=== PATIENT | female | born 1945 | race African-American/Black ===

== ENCOUNTER 2020-10-18 06:11 | Inpatient (IN) | payer OTHER ==
[2020-10-18] MEDS ORDERED: Albuterol/Ipratropium 3.0-0.5 MG/3 ML Neb Soln NEB STA (06:22)
[2020-10-18] MEDS ORDERED: Albuterol/Ipratropium 3.0-0.5 MG/3 ML Neb Soln NEB ONE ×2 (06:23→06:24)
[2020-10-18] MEDS ORDERED: methylPREDNISolone Sodium Succinate 40 MG/1 ML SDV IVPUSH ONE (06:24)
[2020-10-18] MEDS ORDERED: Magnesium Sulfate/Water 2 GM in Premix Bag 1 BAG IV ONE (06:24)
--- NOTE | 2020-10-18 06:35 | EDM.PDOC ---
<Arnav Wolff - Last Filed: 10/18/20 07:16> ED HPI GENERAL MEDICAL PROBLEM - General Chief Complaint: Respiratory Problem Stated Complaint: ASTHMA Time Seen by Provider: 10/18/20 06:20 - History of Present Illness INITIAL COMMENTS - FREE TEXT/NARRATIVE: CHIEF COMPLAINT(S): Shortness of breath HISTORY OF PRESENT ILLNESS: This is a 75-year-old woman with a past medical history of COPD not on home oxygen who comes to the emergency department with a chief complaint of shortness of breath. The patient has been experiencing shortness of breath since yesterday. She had 1 refill of albuterol at the pharmacy however she did not want to use it per the granddaughter at bedside. The patient states that she is having pain when she takes a deep breath and some lower back pain. She cannot describe the pain. She denies any diaphoresis, nausea or vomiting. She denies any cough, runny nose or congestion. She denies any fevers or chills. She denies any lower extremity edema. She denies any rec ent travel, recent surgery or prior history of DVT or PE. She has no history of hypertension. She denies any history of CAD or CHF. REVIEW OF SYSTEMS: Constitutional: Denies fever, chills. Eyes: Denies eye pain Ears, Nose, Mouth, & Throat: Denies earache Cardiovascular: Positive for pleuritic chest pain respiratory: Positive for shortness of breath. Denies cough Gastrointestinal: Denies Nausea, vomiting, diarrhea, hematochezia. Genitourinary: Denies hematuria, dysuria Skin:Denies a rash MSK: Positive for lower back pain Neurological: Denies blurred vision, numbness, tingling, weakness Psychiatric: Denies depression PAST MEDICAL HISTORY: As per history of present illness and as reviewed below otherwise noncontributory. SURGICAL HISTORY: As per history of present illness and as reviewed below otherwise noncontributory. SOCIAL HISTORY: As per history of present illness and as reviewed below otherwise noncontributory. FAMILY HISTORY: As per history of present illness and as reviewed below otherwise noncontributory. EXAMINATION OF ORGAN SYSTEMS/BODY AREAS: Constitutional: Blood pressure was 213/132, heart rate 98, respiratory rate 26 with an oxygen saturation of 87% on room air. Temperature 36.2. The patient was 98% on 2 L nasal cannula General: Elderly woman who appears to be in moderate respiratory distress Psychiatric: Appropriate mood and affect. Eyes: No scleral icterus or conjunctival erythema ENMT: Moist mucous membranes. No pharyngeal erythema Cardiovascular: Regular, rate, and rhythm. No gallops, murmurs, or rubs. Bilateral upper extremity pulses symmetric and intact. No peripheral edema. JVD is present respiratory: The patient is tachypneic with bilateral inspiratory and expiratory wheezing with prolonged expiratory phase. Patient is able to sit comfortable setting back. The wheezing is asymmetrical with more wheezing on the left than the right. Gastrointestinal: Soft, non-tender, non-distended. Normoactive bowel sounds Genitourinary: No suprapubic tenderness Musculoskeletal: Normal range of motion. No midline thoracic, lumbar tenderness. No paralumbar spinal tenderness. No abnormality of the skin. Skin: No lesions or abrasions. Neurological: Alert, GCS 15 MEDICAL DECISION MAKING AND COURSE IN THE ED WITH INTERPRETATION/REVIEW OF DIAGNOSTIC STUDIES: This is a 75-year-old woman with a past medical history of COPD not on home oxygen without any reported other history who comes to the emergency department with acute dyspnea who has bilateral inspiratory and expiratory wheezing who is hypoxic on room air. Given her history of COPD we will provide the patient with 3 DuoNeb treatments q. 20 minutes, 40 mg of IV Solu-Medrol, and 2 g of magnesium. Given the hypoxia and hypertension will obtain an EKG and a cardiac work-up. I will obtain CBC, CMP, lipase, troponin, BNP, magnesium. Will place patient on charge entry specialist and pulse oximetry. digital recruiter did reveal sinus rhythm and pulse oximetry with good waveform was 98% on 2 L nasal cannula. DISPOSITION: Patient was signed out to oncoming day team physician pending reevaluation and work-up. CONDITION: Fair PROCEDURES: Cardiac monitoring interpretation, pulse oximetry interpretation FINAL IMPRESSION(S)/DIAGNOSES: 1. Acute hypoxic respiratory failure requiring oxygen supplementation likely secondary to COPD exacerbation Arnav Wolff M.D. Middle Chest Pain Score (Numeric/FACES): 7 - Related Data Allergies Allergy/AdvReac Type Severity Reaction Status Date / Time No Known Allergies Allergy Verified 10/18/20 06:18 ED ROS GENERAL - Review of Systems Review Of Systems: See Below ED EXAM, GENERAL - Physical Exam Exam: See Below Departure - Departure Disposition: Admitted As Inpatient 67 Clinical Impression: COPD exacerbation - Discharge Information Referrals: PCP,None [Primary Care Provider] - Forms: ED Department Discharge Sepsis Event Note (ED) - Evaluation Sepsis Screening Result: No Definite Risk <Olaf James - Last Filed: 10/18/20 07:36> Course - Vital Signs Last Recorded V/S: Last Vital Signs Temp 97.2 F 10/18/20 06:19 Pulse 82 10/18/20 07:18 Resp 18 10/18/20 07:18 BP 146/93 H 10/18/20 07:18 Pulse Ox 95 10/18/20 07:18 - Orders/Labs/Meds Orders: Active Orders 24 hr Category Date Time Status EKG Documentation Completion [RC] STAT Care 10/18/20 06:21 Active RT Aerosol Therapy [RC] ASDIRECTED Care 10/18/20 06:23 Active RT Aerosol Therapy [RC] ASDIRECTED Care 10/18/20 06:24 Active RT Aerosol Therapy [RC] ASDIRECTED Care 10/18/20 06:24 Active Magnesium Sulfate/Water [Magnesium Sulfate in Water 2 Med 10/18/20 06:24 Active GM/50 ML] 2 gm Premix Bag 1 bag IV ONETIME Medication Orders Magnesium Sulfate 2 gm/ Premix 50 mls @ 12.5 mls/hr IV ONETIME ONE Stop: 10/18/20 10:23 Last Admin: 10/18/20 06:32 Dose: 12.5 mls/hr Documented by: CHANTELL Labs: Laboratory Tests 10/18/20 10/18/20 10/18/20 Range/Units 06:25 06:25 06:25 WBC 9.91 (4.0-11.0) K/uL RBC 5.68 (4.30-5.90) M/uL Hgb 16.3 H (12.0-16.0) g/dL Hct 49.3 H (36.0-46.0) % MCV 86.8 (80.0-98.0) fL MCH 28.7 (27.0-32.0) pg MCHC 33.1 (31.0-37.0) g/dL RDW Std Deviation 44.3 (28.0-62.0) fl RDW Coeff of Anibal 14 (11.0-15.0) % Plt Count 160 (150-400) K/uL MPV 11.50 (7.40-12.00) fL Neut % (Auto) 39.2 L (48.0-80.0) % Lymph % (Auto) 50.3 H (16.0-40.0) % [place] % (Auto) 5.3 (0.0-15.0) % Eos % (Auto) 4.9 (0.0-7.0) % Baso % (Auto) 0.3 (0.0-1.5) % Neut # (Auto) 3.9 (1.4-5.7) K/uL Lymph # (Auto) 5.0 H (0.6-2.4) K/uL [place] # (Auto) 0.5 (0.0-0.8) K/uL Eos # (Auto) 0.5 (0.0-0.7) K/uL Baso # (Auto) 0.0 (0.0-0.1) K/uL Nucleated RBC % 0.0 /100WBC Nucleated RBCs # 0 K/uL Sodium 141 (136-145) mmol/L Potassium 5.1 (3.5-5.1) mmol/L Chloride 102 (98-107) mmol/L Carbon Dioxide 28.8 (21.0-32.0) mmol/L BUN 18 (7.0-18.0) mg/dL Creatinine 0.7 (0.6-1.0) mg/dL Est Cr Clr Drug Dosing 52.51 mL/min Estimated GFR (MDRD) > 60.0 ml/min Glucose 155 H (74-106) mg/dL Calcium 9.2 (8.5-10.1) mg/dL Magnesium 2.0 (1.8-2.4) mg/dL Total Bilirubin 0.4 (0.2-1.0) mg/dL AST 41 H (15-37) IU/L ALT 23 (14-63) IU/L Alkaline Phosphatase 84 (46-116) U/L Troponin I < 0.050 (0.000-0.056) ng/mL B-Natriuretic Peptide 7 (<100) PG/ML Total Protein 8.9 H (6.4-8.2) g/dL Albumin 4.0 (3.4-5.0) g/dL Globulin 4.9 H (2.6-4.0) g/dL Albumin/Globulin Ratio 0.8 L (0.9-1.6) Meds: Medications Generic Name Dose Route Start Last Admin Trade Name Freq PRN Reason Stop Dose Admin Magnesium Sulfate 2 gm/ Premix 50 mls @ 12.5 mls/hr 10/18/20 06:24 10/18/20 06:32 IV 10/18/20 10:23 12.5 mls/hr ONETIME ONE Administration Discontinued Medications Generic Name Dose Route Start Last Admin Trade Name Freq PRN Reason Stop Dose Admin Albuterol/Ipratropium 3 ml 10/18/20 06:22 10/18/20 06:38 Albuterol/Ipratropium 3.0-0.5 Mg/3 Ml Neb Inge NEB 10/18/20 06:23 3 ml ONETIME STA Administration Albuterol/Ipratropium 3 ml 10/18/20 06:23 10/18/20 06:57 Albuterol/Ipratropium 3.0-0.5 Mg/3 Ml Scott Alcazar NEB 10/18/20 06:24 3 ml ONETIME ONE Administration Albuterol/Ipratropium 3 ml 10/18/20 06:24 10/18/20 07:14 Albuterol/Ipratropium 3.0-0.5 Mg/3 Ml Neb Inge NEB 10/18/20 06:25 3 ml ONETIME ONE Administration Methylprednisolone Sodium Succinate 40 mg 10/18/20 06:24 10/18/20 06:31 Methylprednisolone Sodium Succinate 40 Mg/1 Ml Sdv IVPUSH 10/18/20 06:25 40 mg ONETIME ONE Administration Departure - Departure Time of Disposition: 07:36 Condition: Good - Discharge Information *PRESCRIPTION DRUG MONITORING PROGRAM REVIEWED*: Not Applicable *COPY OF PRESCRIPTION DRUG MONITORING REPORT IN PATIENT IZABELLA: Not Applicable Sepsis Event Note (ED) - Focused Exam Vital Signs: Vital Signs Temp Pulse Resp BP Pulse Ox 10/18/20 07:18 82 18 146/93 H 95 10/18/20 06:25 104 H 24 H 95 10/18/20 06:19 97.2 F 98 26 H 213/132 H 87 L - Assessment/Plan Assessment:: Pt received in sign out from Dr. Wolff at 0700. Pt is a 75yoF with a h/o COPD who presented with hypoxia and respiratory distress. Pt also notably hypertensive on arrival. However, this improved with nebs which is typical for her. Pt now breathing more comfortably on 2 L NC. CXR without PNA. Awaiting rest of labs. Pt will likely need admission for acute hypoxic respiratory failure 2/2 COPD exacerbation. 0735: On reassessment pt is laying back in bed but con't to require O2 support at 2L. She con't to have diffuse expiratory wheezing with moderate air movement and prolonged expiratory phase. Labs w/out signs of cardiac process and given exam, significant improvment with neb and lack of any significant tachycardia PE is felt unlikely. Will discuss with the hospitalist regarding admission for further care. Pt discussed with Dr. Modi. COVID pending, will admit for further treatment.
--- NOTE | 2020-10-18 06:59 | PCM.EKG ---
#1 Interpretation EKG Date: 10/18/20 Time: 06:54 Rhythm: NSR Rate (Beats/Min): 96 [place]: Normal P-Wave: Present QRS: Normal ST-T: Normal QT: Normal Comparison: No Change (08/29/20) EKG Interpretation Comments: Sinus Rhythm
[2020-10-18 07:01] LABS: BLOOD UREA NITROGEN,BUN 18 mg/dL (7.0-18.0); CARBON DIOXIDE,CO2 28.8 mmol/L (21.0-32.0); CHLORIDE,CL 102 mmol/L (98-107); GLUCOSE RANDOM 155 mg/dL (74-106); POTASSIUM,K 5.1 mmol/L (3.5-5.1); SODIUM,NA 141 mmol/L (136-145)
--- NOTE | 2020-10-18 07:02 | CR ---
INDICATION: Shortness of breath, asymmetric wheezing TECHNIQUE: Portable AP view of the chest COMPARISON: None FINDINGS: The lungs are clear. There is no sizable pleural effusion or pneumothorax. The cardiomediastinal silhouette is mildly enlarged. The visualized osseous structures are unremarkable. IMPRESSION: Mildly enlarged cardiac silhouette. No acute pulmonary abnormality. Dictated by Crys Paul MD @ 10/18/2020 7:00:[address] Crys Paul @ Oct 18 2020 7:00AM
--- NOTE | 2020-10-18 13:28 | PCM.HP.2 ---
H&P History of Present Illness - General Date of Service: 10/18/20 Admit Problem/Dx: Admission Diagnosis/Problem Admission Diagnosis/Problem Acute bronchitis with chronic obstructive pulmonary disease (COPD) - History of Present Illness Initial Comments - Free Text/Narative: 75 yo female with pmh of HTN and COPD who presents with two day history of shortness of breath, wheezing and cough. She was seen in the ED in some respiratory distress. She was given solumdrol, duonebs with improvement in her breathing but still was requring simple NC to maintain sats. Middle Chest Pain Score (Numeric/FACES): 7 - Related Data Allergies/Adverse Reactions: Allergies Allergy/AdvReac Type Severity Reaction Status Date / Time No Known Allergies Allergy Verified 10/18/20 13:19 Past Medical History HEENT History: Reports: None Cardiovascular History: Reports: None Respiratory History: Reports: Asthma Gastrointestinal History: Reports: None Genitourinary History: Reports: None FUSE MAKER History: Reports: None Musculoskeletal History: Reports: None Neurological History: Reports: None Psychiatric History: Reports: None Endocrine/Metabolic History: Reports: None Hematologic History: Reports: None Immunologic History: Reports: None Oncologic (Cancer) History: Reports: None Dermatologic History: Reports: None - Infectious Disease History Infectious Disease History: Reports: None - Past Surgical History Head Surgeries/Procedures: Reports: None Social & Family History - Family History Family Medical History: No Pertinent Family History - Tobacco Use Tobacco Use Status *Q: Former Tobacco User Used Tobacco, but Quit: Yes Month/Year Tobacco Last Used: unkown - Caffeine Use Caffeine Use: Reports: None - Recreational Drug Use Recreational Drug Use: No H&P Review of Systems - Review of Systems: Review Of Systems: Comprehensive ROS is negative, except as noted in HPI. Exam - Exam Exam: See Below - Vital Signs Vital Signs: Last Vital Signs Temp 36.9 C 10/18/20 12:24 Pulse 80 10/18/20 12:24 Resp 18 10/18/20 12:24 BP 164/87 H 10/18/20 12:24 Pulse Ox 95 10/18/20 12:24 Weight: 45.5 kg - Exam General: Alert, Oriented HEENT: Mucosa Moist & [place] Neck: Supple Lungs: Clear to Auscultation, Normal Respiratory Effort Cardiovascular: Regular Rate, Regular Rhythm GI/Abdominal Exam: Normal Bowel Sounds, Soft, Non-Tender Extremities: Non-Tender, No Pedal Edema Skin: Warm, Dry, Intact - Patient Data Lab Results Last 24 hrs: Laboratory Results - last 24 hr 10/18/20 10/18/20 10/18/20 Range/Units 06:25 06:25 06:25 WBC 9.91 (4.0-11.0) K/uL RBC 5.68 (4.30-5.90) M/uL Hgb 16.3 H (12.0-16.0) g/dL Hct 49.3 H (36.0-46.0) % MCV 86.8 (80.0-98.0) fL MCH 28.7 (27.0-32.0) pg MCHC 33.1 (31.0-37.0) g/dL RDW Std Deviation 44.3 (28.0-62.0) fl RDW Coeff of Anibal 14 (11.0-15.0) % Plt Count 160 (150-400) K/uL MPV 11.50 (7.40-12.00) fL Neut % (Auto) 39.2 L (48.0-80.0) % Lymph % (Auto) 50.3 H (16.0-40.0) % [place] % (Auto) 5.3 (0.0-15.0) % Eos % (Auto) 4.9 (0.0-7.0) % Baso % (Auto) 0.3 (0.0-1.5) % Neut # (Auto) 3.9 (1.4-5.7) K/uL Lymph # (Auto) 5.0 H (0.6-2.4) K/uL [place] # (Auto) 0.5 (0.0-0.8) K/uL Eos # (Auto) 0.5 (0.0-0.7) K/uL Baso # (Auto) 0.0 (0.0-0.1) K/uL Nucleated RBC % 0.0 /100WBC Nucleated RBCs # 0 K/uL Sodium 141 (136-145) mmol/L Potassium 5.1 (3.5-5.1) mmol/L Chloride 102 (98-107) mmol/L Carbon Dioxide 28.8 (21.0-32.0) mmol/L BUN 18 (7.0-18.0) mg/dL Creatinine 0.7 (0.6-1.0) mg/dL Est Cr Clr Drug Dosing 52.51 mL/min Estimated GFR (MDRD) > 60.0 ml/min Glucose 155 H (74-106) mg/dL Calcium 9.2 (8.5-10.1) mg/dL Magnesium 2.0 (1.8-2.4) mg/dL Total Bilirubin 0.4 (0.2-1.0) mg/dL AST 41 H (15-37) IU/L ALT 23 (14-63) IU/L Alkaline Phosphatase 84 (46-116) U/L Troponin I < 0.050 (0.000-0.056) ng/mL B-Natriuretic Peptide 7 (<100) PG/ML Total Protein 8.9 H (6.4-8.2) g/dL Albumin 4.0 (3.4-5.0) g/dL Globulin 4.9 H (2.6-4.0) g/dL Albumin/Globulin Ratio 0.8 L (0.9-1.6) SARS-CoV-2 RNA ([place]) (NEGATIVE) 10/18/20 Range/Units 07:38 WBC (4.0-11.0) K/uL RBC (4.30-5.90) M/uL Hgb (12.0-16.0) g/dL Hct (36.0-46.0) % MCV (80.0-98.0) fL MCH (27.0-32.0) pg MCHC (31.0-37.0) g/dL RDW Std Deviation (28.0-62.0) fl RDW Coeff of Anibal (11.0-15.0) % Plt Count (150-400) K/uL MPV (7.40-12.00) fL Neut % (Auto) (48.0-80.0) % Lymph % (Auto) (16.0-40.0) % [place] % (Auto) (0.0-15.0) % Eos % (Auto) (0.0-7.0) % Baso % (Auto) (0.0-1.5) % Neut # (Auto) (1.4-5.7) K/uL Lymph # (Auto) (0.6-2.4) K/uL [place] # (Auto) (0.0-0.8) K/uL Eos # (Auto) (0.0-0.7) K/uL Baso # (Auto) (0.0-0.1) K/uL Nucleated RBC % /100WBC Nucleated RBCs # K/uL Sodium (136-145) mmol/L Potassium (3.5-5.1) mmol/L Chloride (98-107) mmol/L Carbon Dioxide (21.0-32.0) mmol/L BUN (7.0-18.0) mg/dL Creatinine (0.6-1.0) mg/dL Est Cr Clr Drug Dosing mL/min Estimated GFR (MDRD) ml/min Glucose (74-106) mg/dL Calcium (8.5-10.1) mg/dL Magnesium (1.8-2.4) mg/dL Total Bilirubin (0.2-1.0) mg/dL AST (15-37) IU/L ALT (14-63) IU/L Alkaline Phosphatase (46-116) U/L Troponin I (0.000-0.056) ng/mL B-Natriuretic Peptide (<100) PG/ML Total Protein (6.4-8.2) g/dL Albumin (3.4-5.0) g/dL Globulin (2.6-4.0) g/dL Albumin/Globulin Ratio (0.9-1.6) SARS-CoV-2 RNA ([place]) NEGATIVE (NEGATIVE) Result Diagrams: 10/18/20 06:25 10/18/20 06:25 Sepsis Event Note - Evaluation Sepsis Screening Result: No Definite Risk - Focused Exam Vital Signs: Vital Signs Temp Pulse Resp BP Pulse Ox 10/18/20 12:24 36.9 C 80 18 164/87 H 95 10/18/20 09:45 36.8 C 78 18 143/96 H 96 10/18/20 08:24 36.8 C 88 18 147/96 H 97 10/18/20 07:18 82 18 146/93 H 95 10/18/20 06:25 104 H 24 H 95 10/18/20 06:19 36.2 C 98 26 H 213/132 H 87 L Problem List Initiated/Reviewed/Updated: Yes Orders Last 24hrs: Active Orders 24 hr Category Date Time Status Patient Status [ADT] Routine ADT 10/18/20 07:37 Active Antiembolic Devices [RC] PER UNIT ROUTINE Care 10/18/20 13:22 Ordered EKG Documentation Completion [RC] STAT Care 10/18/20 06:21 Active Oxygen Therapy [RC] PRN Care 10/18/20 13:22 Ordered RT Aerosol Therapy [RC] ASDIRECTED Care 10/18/20 06:23 Active RT Aerosol Therapy [RC] ASDIRECTED Care 10/18/20 06:24 Active RT Aerosol Therapy [RC] ASDIRECTED Care 10/18/20 06:24 Active RT Aerosol Therapy [RC] ASDIRECTED Care 10/18/20 13:22 Ordered VTE/DVT Education [RC] PER UNIT ROUTINE Care 10/18/20 13:22 Ordered Vital Signs [RC] Q4H Care 10/18/20 13:22 Ordered Regular Diet [DIET] Diet 10/18/20 Breakfast Ordered BASIC METABOLIC PANEL,BMP [CHEM] AM Lab 10/19/20 05:11 Ordered CBC WITH AUTO DIFF [HEME] AM Lab 10/19/20 05:11 Ordered Albuterol/Ipratropium [DuoNeb 3.0-0.5 MG/3 ML] Med 10/18/20 14:00 Ordered 3 ml NEB Q4HRRT Enoxaparin [Lovenox] Med 10/18/20 13:30 Ordered 40 mg SUBCUT Q24H Sequential Compression Device [OM.PC] Per Unit Routine Oth 10/18/20 13:22 Ordered Resuscitation Status Routine Resus Stat 10/18/20 13:21 Ordered Medication Orders Albuterol/Ipratropium (Albuterol/Ipratropium 3.0-0.5 Mg/3 Ml Neb Soln) 3 ml NEB Q4HRRT KRISTEN Enoxaparin Sodium (Enoxaparin 40 Mg/0.4 Ml Syringe) 40 mg SUBCUT Q24H KRISTEN Assessment/Plan Comment:: 75 yo female admitted for COPD exacerbation. We will treat with Solumol and duonebs. Continue to monitor and wean supplement oxygen as tolerated.
[2020-10-18] MEDS: Albuterol/Ipratropium 3.0-0.5 MG/3 ML Neb Soln NEB SCH ×3 (13:33→22:00)
[2020-10-18] MEDS: Enoxaparin 40 MG/0.4 ML Syringe SUBCUT SCH (13:48)
[2020-10-19] MEDS: Albuterol/Ipratropium 3.0-0.5 MG/3 ML Neb Soln NEB SCH ×6 (02:06→21:06)
[2020-10-19 05:36] LABS: BLOOD UREA NITROGEN,BUN 12 mg/dL (7.0-18.0); CARBON DIOXIDE,CO2 32.9 mmol/L (21.0-32.0); CHLORIDE,CL 104 mmol/L (98-107); GLUCOSE RANDOM 104 mg/dL (74-106); POTASSIUM,K 4.2 mmol/L (3.5-5.1); SODIUM,NA 141 mmol/L (136-145)
[2020-10-19] MEDS ORDERED: guaiFENesin 100 MG/5 ML Soln 5 ML UD Cup PO PRN (09:30)
[2020-10-19] MEDS: Fluticasone/Salmeterol 100-50 MCG Inhalation Powder 14/Diskus INH SCH ×2 (09:57→21:03)
[2020-10-19] MEDS: methylPREDNISolone Sodium Succinate 40 MG/1 ML SDV IVPUSH SCH ×2 (09:58→17:39)
[2020-10-19] MEDS ORDERED: Pantoprazole 40 MG in Sodium Chloride 0.9% 10 ML IV ONE (12:25)
--- NOTE | 2020-10-19 12:25 | PCM.PN ---
- General Info Date of Service: 10/19/20 Admission Dx/Problem (Free Text): Admission Diagnosis/Problem Admission Diagnosis/Problem Acute bronchitis with chronic obstructive pulmonary disease (COPD) Subjective Update: Patient seen at bedside, resting comfortably, per nursing earlier patient complained of some epigastric pain and some pain with deep inspiration, no chest pain no nausea no vomiting no abdominal pain, patient continues to have wheezing and says there is some work of breathing as well Functional Status: Reports: Tolerating Diet, Ambulating, Urinating - Review of Systems General: Denies: Fever, Weakness Pulmonary: Reports: Shortness of Breath, Cough. Denies: Pleuritic Chest Pain Cardiovascular: Denies: Chest Pain, Palpitations, Dyspnea on Exertion Gastrointestinal: Reports: Other (Epigastric pain). Denies: Abdominal Pain, Decreased Appetite, Hematochezia, Melena, Nausea, Vomiting - Patient Data Vitals - Most Recent: Last Vital Signs Temp 36.3 C 10/19/20 09:15 Pulse 88 10/19/20 09:15 Resp 18 10/19/20 09:15 BP 180/94 H 10/19/20 09:15 Pulse Ox 97 10/19/20 09:15 Weight - Most Recent: 45.5 kg I&O - Last 24 Hours: Intake & Output 10/18/20 10/19/20 10/19/20 22:59 06:59 14:59 Intake Total 400 750 Balance 400 750 Lab Results Last 24 Hours: Laboratory Results - last 24 hr 10/19/20 10/19/20 Range/Units 05:10 05:10 WBC 12.42 H (4.0-11.0) K/uL RBC 5.21 (4.30-5.90) M/uL Hgb 14.7 (12.0-16.0) g/dL Hct 45.2 (36.0-46.0) % MCV 86.8 (80.0-98.0) fL MCH 28.2 (27.0-32.0) pg MCHC 32.5 (31.0-37.0) g/dL RDW Std Deviation 43.8 (28.0-62.0) fl RDW Coeff of Anibal 14 (11.0-15.0) % Plt Count 185 (150-400) K/uL MPV 11.80 (7.40-12.00) fL Neut % (Auto) 49.1 (48.0-80.0) % Lymph % (Auto) 41.9 H (16.0-40.0) % [place] % (Auto) 7.6 (0.0-15.0) % Eos % (Auto) 1.2 (0.0-7.0) % Baso % (Auto) 0.2 (0.0-1.5) % Neut # (Auto) 6.1 H (1.4-5.7) K/uL Lymph # (Auto) 5.2 H (0.6-2.4) K/uL [place] # (Auto) 1.0 H (0.0-0.8) K/uL Eos # (Auto) 0.2 (0.0-0.7) K/uL Baso # (Auto) 0.0 (0.0-0.1) K/uL Nucleated RBC % 0.0 /100WBC Nucleated RBCs # 0 K/uL Sodium 141 (136-145) mmol/L Potassium 4.2 (3.5-5.1) mmol/L Chloride 104 (98-107) mmol/L Carbon Dioxide 32.9 H (21.0-32.0) mmol/L BUN 12 (7.0-18.0) mg/dL Creatinine 0.8 (0.6-1.0) mg/dL Est Cr Clr Drug Dosing 44.31 mL/min Estimated GFR (MDRD) > 60.0 ml/min Glucose 104 (74-106) mg/dL Calcium 9.0 (8.5-10.1) mg/dL Med Orders - Current: Current Medications Albuterol/Ipratropium (Albuterol/Ipratropium 3.0-0.5 Mg/3 Ml Neb Soln) 3 ml NEB Q4HRRT [facility] Last Admin: 10/19/20 09:57 Dose: 3 ml Documented by: Enoxaparin Sodium (Enoxaparin 40 Mg/0.4 Ml Syringe) 40 mg SUBCUT Q24H [facility] Last Admin: 10/18/20 13:48 Dose: 40 mg Documented by: Guaifenesin (Guaifenesin 100 Mg/5 Ml Soln 5 Ml Ud Cup) 200 mg PO Q4H PRN PRN Reason: Cough Methylprednisolone Sodium Succinate (Methylprednisolone Sodium Succinate 40 Mg/1 Ml Sdv) 40 mg IVPUSH Q8H [facility] Last Admin: 10/19/20 09:58 Dose: 40 mg Documented by: Fluticasone/Salmeterol (Fluticasone/Salmeterol 100-50 Mcg Inhalation Powder 14 /Diskus) 1 puff INH BID [facility] Last Admin: 10/19/20 09:57 Dose: 1 inhalation Documented by: Discontinued Medications Albuterol/Ipratropium (Albuterol/Ipratropium 3.0-0.5 Mg/3 Ml Neb Soln) 3 ml NEB ONETIME STA Stop: 10/18/20 06:23 Last Admin: 10/18/20 06:38 Dose: 3 ml Documented by: Albuterol/Ipratropium (Albuterol/Ipratropium 3.0-0.5 Mg/3 Ml Neb Soln) 3 ml NEB ONETIME ONE Stop: 10/18/20 06:24 Last Admin: 10/18/20 06:57 Dose: 3 ml Documented by: Albuterol/Ipratropium (Albuterol/Ipratropium 3.0-0.5 Mg/3 Ml Neb Soln) 3 ml NEB ONETIME ONE Stop: 10/18/20 06:25 Last Admin: 10/18/20 07:14 Dose: 3 ml Documented by: Magnesium Sulfate 2 gm/ Premix 50 mls @ 12.5 mls/hr IV ONETIME ONE Stop: 10/18/20 10:23 Last Admin: 10/18/20 06:32 Dose: 12.5 mls/hr Documented by: Methylprednisolone Sodium Succinate (Methylprednisolone Sodium Succinate 40 Mg/1 Ml Sdv) 40 mg IVPUSH ONETIME ONE Stop: 10/18/20 06:25 Last Admin: 10/18/20 06:31 Dose: 40 mg Documented by: - Exam Quality Assessment: Supplemental Oxygen General: Alert, Oriented, Cooperative, Mild Distress Neck: Supple, Trachea Midline Lungs: Normal Respiratory Effort, Wheezing. No: Crackles, Rales, Rhonchi Cardiovascular: Regular Rate, Regular Rhythm GI/Abdominal Exam: Normal Bowel Sounds, Soft, Other (Epigastric tenderness) - Patient Data Lab Results Last 24 hrs: Laboratory Results - last 24 hr 10/19/20 10/19/20 Range/Units 05:10 05:10 WBC 12.42 H (4.0-11.0) K/uL RBC 5.21 (4.30-5.90) M/uL Hgb 14.7 (12.0-16.0) g/dL Hct 45.2 (36.0-46.0) % MCV 86.8 (80.0-98.0) fL MCH 28.2 (27.0-32.0) pg MCHC 32.5 (31.0-37.0) g/dL RDW Std Deviation 43.8 (28.0-62.0) fl RDW Coeff of Anibal 14 (11.0-15.0) % Plt Count 185 (150-400) K/uL MPV 11.80 (7.40-12.00) fL Neut % (Auto) 49.1 (48.0-80.0) % Lymph % (Auto) 41.9 H (16.0-40.0) % [place] % (Auto) 7.6 (0.0-15.0) % Eos % (Auto) 1.2 (0.0-7.0) % Baso % (Auto) 0.2 (0.0-1.5) % Neut # (Auto) 6.1 H (1.4-5.7) K/uL Lymph # (Auto) 5.2 H (0.6-2.4) K/uL [place] # (Auto) 1.0 H (0.0-0.8) K/uL Eos # (Auto) 0.2 (0.0-0.7) K/uL Baso # (Auto) 0.0 (0.0-0.1) K/uL Nucleated RBC % 0.0 /100WBC Nucleated RBCs # 0 K/uL Sodium 141 (136-145) mmol/L Potassium 4.2 (3.5-5.1) mmol/L Chloride 104 (98-107) mmol/L Carbon Dioxide 32.9 H (21.0-32.0) mmol/L BUN 12 (7.0-18.0) mg/dL Creatinine 0.8 (0.6-1.0) mg/dL Est Cr Clr Drug Dosing 44.31 mL/min Estimated GFR (MDRD) > 60.0 ml/min Glucose 104 (74-106) mg/dL Calcium 9.0 (8.5-10.1) mg/dL Result Diagrams: 10/19/20 05:10 10/19/20 05:10 Sepsis Event Note - Evaluation Sepsis Screening Result: No Definite Risk - Focused Exam Vital Signs: Vital Signs Temp Pulse Resp BP BP Pulse Ox 10/19/20 09:15 36.3 C 88 18 180/94 H 97 10/19/20 04:00 36.5 C 81 18 142/84 H 97 - Problem List & Annotations (1) COPD exacerbation SNOMED Code(s): 819392311 Code(s): J44.1 - CHRONIC OBSTRUCTIVE PULMONARY DISEASE W (ACUTE) EXACERBATION Status: Acute Current Visit: Yes (2) Hypertension SNOMED Code(s): 02221426 Code(s): I10 - ESSENTIAL (PRIMARY) HYPERTENSION Status: Acute Current Visit: Yes - Problem List Review Problem List Initiated/Reviewed/Updated: Yes - My Orders Last 24 Hours: My Active Orders 10/19/20 09:11 RT Incentive Spirometry [RC] Q2HWA 10/19/20 09:13 RT Post Treatment Assessment [RC] Click to Edit RT Pre-Treatment Assessment [RC] Click to Edit 10/19/20 09:30 Fluticasone/Salmeterol [Advair Diskus 100-50] 1 puff INH BID guaiFENesin [Robitussin] 200 mg PO Q4H PRN methylPREDNISolone Sod Succ [Solu-MEDROL] 40 mg IVPUSH Q8H - Plan Plan:: 75 yo female admitted for COPD exacerbation. Will start patient on IV Solu-Medrol 40 mg every 8 hours Continue duo nebs as needed for shortness of breath Robitussin as needed for cough Patient complaining of some epigastric discomfort likely gastritis, will administer GI cocktail and see if patient's pain improves Continue to monitor and wean supplement oxygen as tolerated.
[2020-10-19] MEDS: Aluminum Hydroxide/Magnesium Hydroxide/Simethicone Susp 30 ML Cup PO PRN ×2 (12:44→20:56)
[2020-10-19] MEDS: amLODIPine 5 MG Tab PO SCH (12:46)
[2020-10-19] MEDS: Enoxaparin 40 MG/0.4 ML Syringe SUBCUT SCH (12:47)
[2020-10-20] MEDS: Albuterol/Ipratropium 3.0-0.5 MG/3 ML Neb Soln NEB SCH ×4 (01:11→13:34)
[2020-10-20] MEDS: methylPREDNISolone Sodium Succinate 40 MG/1 ML SDV IVPUSH SCH ×2 (01:11→09:24)
[2020-10-20 05:11] LABS: BLOOD UREA NITROGEN,BUN 12 mg/dL (7.0-18.0); CARBON DIOXIDE,CO2 30.9 mmol/L (21.0-32.0); CHLORIDE,CL 104 mmol/L (98-107); GLUCOSE RANDOM 172 mg/dL (74-106); POTASSIUM,K 4.2 mmol/L (3.5-5.1); SODIUM,NA 141 mmol/L (136-145)
[2020-10-20] MEDS ORDERED: Ondansetron 4 MG/2 ML SDV IVPUSH PRN (08:11)
[2020-10-20] MEDS ORDERED: Acetaminophen 325 MG Tab PO PRN (08:11)
[2020-10-20] MEDS ORDERED: Losartan 50 MG Tab PO SCH (09:00)
[2020-10-20] MEDS: amLODIPine 5 MG Tab PO SCH (09:22)
[2020-10-20] MEDS: Aluminum Hydroxide/Magnesium Hydroxide/Simethicone Susp 30 ML Cup PO PRN (09:22)
[2020-10-20] MEDS: Fluticasone/Salmeterol 100-50 MCG Inhalation Powder 14/Diskus INH SCH (09:42)
--- NOTE | 2020-10-20 13:34 | PCM.DCSUM1 ---
Discharge Summary - Hospital Course Diagnosis: Stroke: No - Discharge Data Discharge Disposition: Home, Self-Care 01 Condition: Stable - Referral to Home Health Primary Care Physician: PCP None - Discharge Diagnosis/Problem(s) (1) COPD exacerbation SNOMED Code(s): 956453472 ICD Code: J44.1 - CHRONIC OBSTRUCTIVE PULMONARY DISEASE W (ACUTE) EXACERBATION Status: Acute Current Visit: Yes (2) Hypertension SNOMED Code(s): 22373260 ICD Code: I10 - ESSENTIAL (PRIMARY) HYPERTENSION Status: Acute Current Visit: Yes - Patient Instructions Diet: Heart Healthy Diet Activity: As Tolerated Driving: Do Not Drive Showering/Bathing: May Shower Notify Provider of: Fever, Increased Pain, Swelling and Redness, Drainage, Nausea and/or Vomiting - Discharge Plan *PRESCRIPTION DRUG MONITORING PROGRAM REVIEWED*: Not Applicable *COPY OF PRESCRIPTION DRUG MONITORING REPORT IN PATIENT IZABELLA: Not Applicable Prescriptions/Med Rec: Fluticasone/Salmeterol [Advair 100-50] 1 puff INH BID #1 diskus Alum Hydrox/Mag Hydrox/Simeth [Mag-Al Plus] 30 ml PO Q8H PRN #15 cup PRN Reason: Heartburn amLODIPine [Norvasc] 5 mg PO DAILY #30 tablet predniSONE [Prednisone] 40 mg PO DAILY 5 Days #10 tablet Home Medications: Home Meds Albuterol Sulfate [Albuterol Sulfate HFA] 2 inh IH Q4H PRN 10/20/20 [History] Alum Hydrox/Mag Hydrox/Simeth [Mag-Al Plus] 30 ml PO Q8H PRN #15 cup 10/20/20 [Rx] Fluticasone Propionate [Flovent HFA 220 MCG] 1 inh IH BID 10/20/20 [History] Fluticasone/Salmeterol [Advair 100-50] 1 puff INH BID #1 diskus 10/20/20 [Rx] Losartan [Cozaar] 50 mg PO DAILY 10/20/20 [History] amLODIPine [Norvasc] 5 mg PO DAILY #30 tablet 10/20/20 [Rx] predniSONE [Prednisone] 40 mg PO DAILY 5 Days #10 tablet 10/20/20 [Rx] Patient Handouts: Chronic Obstructive Pulmonary Disease Exacerbation, [id number], Fluticasone; Salmeterol inhalation powder, Amlodipine Oral Tablets, Prednisone tablets, Aluminum Hydroxide; Magnesium Carbonate oral suspension Referrals: Julianne Willoughby MD [Physician] - 10/30/20 3:00 pm - Patient Data Vitals - Most Recent: Last Vital Signs Temp 36.6 C 10/20/20 12:00 Pulse 88 10/20/20 12:00 Resp 17 10/20/20 12:00 BP 152/90 H 10/20/20 12:00 Pulse Ox 98 10/20/20 12:00 Weight - Most Recent: 45.5 kg I&O - Last 24 hours: Intake & Output 10/19/20 10/20/20 10/20/20 22:59 06:59 14:59 Intake Total 1540 300 Balance 1540 300 Lab Results - Last 24 hrs: Laboratory Results - last 24 hr 10/20/20 10/20/20 Range/Units 04:40 04:40 WBC 11.21 H (4.0-11.0) K/uL RBC 5.35 (4.30-5.90) M/uL Hgb 15.2 (12.0-16.0) g/dL Hct 46.2 H (36.0-46.0) % MCV 86.4 (80.0-98.0) fL MCH 28.4 (27.0-32.0) pg MCHC 32.9 (31.0-37.0) g/dL RDW Std Deviation 43.3 (28.0-62.0) fl RDW Coeff of Anibal 14 (11.0-15.0) % Plt Count 188 (150-400) K/uL MPV 11.00 (7.40-12.00) fL Neut % (Auto) 65.7 (48.0-80.0) % Lymph % (Auto) 31.3 (16.0-40.0) % [place] % (Auto) 3.0 (0.0-15.0) % Eos % (Auto) 0.0 (0.0-7.0) % Baso % (Auto) 0.0 (0.0-1.5) % Neut # (Auto) 7.4 H (1.4-5.7) K/uL Lymph # (Auto) 3.5 H (0.6-2.4) K/uL [place] # (Auto) 0.3 (0.0-0.8) K/uL Eos # (Auto) 0.0 (0.0-0.7) K/uL Baso # (Auto) 0.0 (0.0-0.1) K/uL Nucleated RBC % 0.0 /100WBC Nucleated RBCs # 0 K/uL Sodium 141 (136-145) mmol/L Potassium 4.2 (3.5-5.1) mmol/L Chloride 104 (98-107) mmol/L Carbon Dioxide 30.9 (21.0-32.0) mmol/L BUN 12 (7.0-18.0) mg/dL Creatinine 0.7 (0.6-1.0) mg/dL Est Cr Clr Drug Dosing 50.65 mL/min Estimated GFR (MDRD) > 60.0 ml/min Glucose 172 H (74-106) mg/dL Calcium 9.3 (8.5-10.1) mg/dL Phosphorus 3.2 (2.6-4.7) mg/dL Magnesium 2.1 (1.8-2.4) mg/dL Med Orders - Current: Current Medications Acetaminophen (Acetaminophen 325 Mg Tab) 650 mg PO Q4H PRN PRN Reason: Pain (Mild 1-3)/fever Al Hydroxide/Mg Hydroxide (Aluminum Hydroxide/Magnesium Hydroxide/Simethicone Susp 30 Ml Cup) 30 ml PO Q6H PRN PRN Reason: Heartburn Last Admin: 10/20/20 09:22 Dose: 30 ml Documented by: Albuterol/Ipratropium (Albuterol/Ipratropium 3.0-0.5 Mg/3 Ml Neb Soln) 3 ml NEB Q4HRRT [facility] Last Admin: 10/20/20 13:34 Dose: 3 ml Documented by: Amlodipine Besylate (Amlodipine 5 Mg Tab) 5 mg PO DAILY [facility] Last Admin: 10/20/20 09:22 Dose: 5 mg Documented by: Enoxaparin Sodium (Enoxaparin 40 Mg/0.4 Ml Syringe) 40 mg SUBCUT Q24H [facility] Last Admin: 10/19/20 12:47 Dose: 40 mg Documented by: Guaifenesin (Guaifenesin 100 Mg/5 Ml Soln 5 Ml Ud Cup) 200 mg PO Q4H PRN PRN Reason: Cough Last Admin: 10/19/20 12:44 Dose: 200 mg Documented by: Losartan Potassium (Losartan 50 Mg Tab) 50 mg PO DAILY [facility] Last Admin: 10/20/20 09:22 Dose: 50 mg Documented by: Methylprednisolone Sodium Succinate (Methylprednisolone Sodium Succinate 40 Mg/1 Ml Sdv) 40 mg IVPUSH Q8H [facility] Last Admin: 10/20/20 09:24 Dose: 40 mg Documented by: Ondansetron HCl (Ondansetron 4 Mg/2 Ml Sdv) 4 mg IVPUSH Q4H PRN PRN Reason: Nausea Fluticasone/Salmeterol (Fluticasone/Salmeterol 100-50 Mcg Inhalation Powder 14/Diskus) 1 puff INH BID [facility] Last Admin: 10/20/20 09:42 Dose: 1 inhalation Documented by: Discontinued Medications Albuterol/Ipratropium (Albuterol/Ipratropium 3.0-0.5 Mg/3 Ml Neb Soln) 3 ml NEB ONETIME STA Stop: 10/18/20 06:23 Last Admin: 10/18/20 06:38 Dose: 3 ml Documented by: Albuterol/Ipratropium (Albuterol/Ipratropium 3.0-0.5 Mg/3 Ml Neb Soln) 3 ml NEB ONETIME ONE Stop: 10/18/20 06:24 Last Admin: 10/18/20 06:57 Dose: 3 ml Documented by: Albuterol/Ipratropium (Albuterol/Ipratropium 3.0-0.5 Mg/3 Ml Neb Soln) 3 ml NEB ONETIME ONE Stop: 10/18/20 06:25 Last Admin: 10/18/20 07:14 Dose: 3 ml Documented by: Magnesium Sulfate 2 gm/ Premix 50 mls @ 12.5 mls/hr IV ONETIME ONE Stop: 10/18/20 10:23 Last Admin: 10/18/20 06:32 Dose: 12.5 mls/hr Documented by: Pantoprazole Sodium 40 mg/ (Sodium Chloride) 10 mls @ 300 mls/hr IV NOW ONE Stop: 10/19/20 12:26 Last Admin: 10/19/20 12:47 Dose: 300 mls/hr Documented by: Methylprednisolone Sodium Succinate (Methylprednisolone Sodium Succinate 40 Mg/1 Ml Sdv) 40 mg IVPUSH ONETIME ONE Stop: 10/18/20 06:25 Last Admin: 10/18/20 06:31 Dose: 40 mg Documented by:
[2020-10-20] MEDS: Enoxaparin 40 MG/0.4 ML Syringe SUBCUT SCH (13:42)
== END 2020-10-20 15:40 | disposition home or self-care (01) | DRG 192 ==
LOC: MW.ED 06:11 → MW.MS 08:14
PROVIDERS: ADMIT Internal Medicine; ATTEND Internal Medicine
DX: J44.1 Chronic obstructive pulmonary disease with (acute) exacerbation (principal); I10 Essential (primary) hypertension; K29.70 Gastritis, unspecified, without bleeding; Z86.718 Personal history of other venous thrombosis and embolism; Z79.01 Long term (current) use of anticoagulants
CPT/HCPCS: 36415; 71045; 71045-26; 80048; 80053; 83735; 83880; 84100; 84484; 85025; 93005; 94640; 96365; 96375; 99284; 99285-25; A9270-GY; C9113; J1650; J2920; J3475; J7620-GY; U0002